=== PATIENT | female | born 1955 | race Caucasian/White ===

== ENCOUNTER → 2020-04-27 13:17 | Outpatient (BNVA) | payer MEDICARE, MEDICAID, SELFPAY | PROVIDERS: Family Provider Family Medicine; PCP Family Medicine; Visit Provider Nurse Practitioner | DX: G40.909 Epilepsy, unspecified, not intractable, without status epilepticus (principal) | CPT/HCPCS: 99213; 99999 ==

== ENCOUNTER 2023-11-06 10:12 | Oncology outpatient (recurring) (ONCR) | payer MEDICARE, MEDICAID, SELFPAY ==
[2023-11-06 11:59] LABS: Basophils # 0.1 10^3/uL (0.0-0.1); Basophils % 2.1 %; Eosinophils # 0.6 10^3/uL (0.0-0.8); Eosinophils % 9.1 %; Hematocrit 31.7 % (36-47); Lymphocytes # 1.8 10^3/uL (0.8-4.8); Lymphocytes % 28.8 %; Mean Corpuscular HGB Conc 32.8 g/dL (30-55); Mean Corpuscular Hemoglobin 30.6 pg (27-33); Mean Corpuscular Volume 93.2 fl (85-98); Mean Platelet Volume 9.2 fL (7.4-10.4); Monocytes # 0.4 10^3/uL (0.2-0.9); Monocytes % 6.4 %; Neutrophils # 3.33 10^3/uL (1.8-7.7); Neutrophils % 53.3 %; Nucleated Red Blood Cells % 0 %; Platelet Count 357 10^3/cmm (157-399); Red Cell Distribution Width 14.9 % (12.1-15.1); White Blood Count 6.25 10^3/uL (3.29-11.43)
[2023-11-06 12:00] LABS: Reticulocyte % 0.9 % (0.5-2.0)
[2023-11-06 12:49] LABS: Folate Level 7.4 ng/mL (4.8-37.3)
[2023-11-06 13:11] LABS: Alanine Aminotransferase 23 U/L (0-33); Albumin Level 4.7 g/dL (3.5-5.2); Alkaline Phosphatase 82 U/L (35-105); Anion Gap 17.2 (5-19); Aspartate Amino Transferase 37 U/L (0-32); Blood Urea Nitrogen 13 mg/dL (8-23); Calcium 9.1 mg/dL (8.5-10.5); Carbon Dioxide 25 mmol/L (22-29); Chloride 97 mmol/L (98-107); Ferritin 78 ng/mL (15-150); Globulin 2.2 g/dL (1.3-4.6); Glomerular Filtration Rate 49.2 mL/min (90-130); Glucose 83 mg/dL (65-115); Iron 68 ug/dL (37-145); Lactate Dehydrogenase 382 U/L (135-214); Osmolality Calculated 277 mOsm/kg (285-295); Percent Saturation 20.2 % (20-50); Potassium 5.2 mmol/L (3.5-5.1); Sodium 134 mmol/L (136-145); Total Bilirubin 0.3 mg/dL (0.15-1.2); Total Iron Binding Capacity 336 mcg/dl; Total Protein 6.9 g/dL (6.6-8.7); Unsaturated Iron Binding 268 ug/dL (112-347)
[2023-11-06 13:27] LABS: Vitamin B12 336 pg/mL (232-1245)
== END 2023-11-24 23:59 | disposition home or self-care (01) ==
LOC: ONCMED 10:13
PROVIDERS: Internal Medicine Hematology & Oncology; Family Provider Family Medicine; PCP Family Medicine; Visit Provider Family Medicine
DX: G35 Multiple sclerosis (principal); D64.9 Anemia, unspecified; E03.9 Hypothyroidism, unspecified; R06.02 Shortness of breath; Z79.899 Other long term (current) drug therapy
CPT/HCPCS: 36415; 80053; 82607; 82728; 82746; 83540; 83550; 83615; 85025; 85045; 99204